=== PATIENT | female | born 1970 | race Caucasian/White ===

== ENCOUNTER 2017-04-27 03:36 | Emergency (ER) | payer OTHER ==
[2017-04-27 03:44] VITALS: BP 214/108; BMI 26.6
--- NOTE | 2017-04-27 03:49 | DR.GENAD ---
HPI - PCP Primary Care Physician: tima - Complaint/Symptoms Chief Complaint:: panic attack, virus, restless leg - Nurses notes reviewed Nurses Notes Review: Yes - Source History Provided: Patient - Mode of Arrival Mode of Arrival: Ambulatory - Timing Onset of Chief Complaint: 04/27/17 Came on: Suddenly - Duration Duration: Constant Duration: Hours - Severity Severity: Moderate PMH - PMH Past Medical History: No Past Medical History: Migraines Past Medical History Comment: adhd, Past Surgical History: Yes Surgical History: Ortho Surgery Past Surgical History Comment: right knee - Family History History of Family Medical Conditions: Yes Family Medical History: Hypertension - Social History Does any household member use tobacco: No Alcohol Use: None Do you use any recreational Drugs:: No Lives With: Family Lives Where: Home - infectious screening In the last 2 months have you had wt loss of >10#?: NO Have you had fever, night sweats or hemotysis?: No Have you traveled outside the country in the last 6 months?: No Isolation: Standard ROS - Review of Systems Constitutional: No Symptoms Reported Eyes: No Symptoms Reported ENTM: No Symptoms Reported Respiratoy: No Symptoms Reported Cardiovascular: No Symptoms Reported Gastrointestinal/Abdominal: No Symptoms Reported Genitourinary: No Symptoms Reported Neurological: No Symptoms Reported Musculoskeletal: No Symptoms Reported Integumentary: No Symptoms Reported Hematologic/Lymphatic: No Symptoms Reported Endocrine: No Symptoms Reported All Other Systems: Reviewed and Negative PE - Vital Signs Vitals: Temperature 97.9 F Pulse Rate 133 Respiratory Rate 16 Blood Pressure 214/108 O2 Sat by Pulse Oximetry 96 - General Limitations: No Limitations General Appearance: Alert - Head Head Exam: Normal Inspection - Eyes Eye exam: Normal Appearance - ENT ENT Exam: Normal External Ear Exam External Ear Exam: Normal External Inspection TM/Canal Exam: Bilateral Normal Nose Exam: Normal Nose Exam Mouth Exam: Normal Inspection Throat Exam: Normal Inspection - Neck Neck Exam: Normal Inspection - Chest Chest Inspection: Symmetric Chest Wall Rise - Respiratory Respiratory Exam: Normal Lung Sounds Bilat Respiratory Exam: Bilateral Clear to Auscultation - Cardiovascular Cardiovascular Exam: Regular Rate, Normal Rhythm, Normal Heart Sounds - Abdominal Exam Abdominal Exam: Normal Bowel Sounds, Soft. negative: Tenderness - Extremities Extremities Exam: Normal Inspection - Back Back Exam: Normal Inspection - Neurologic Neurological Exam: Alert, Oriented X3 - Psychiatric Psychiatric Exam: Normal Affect - Skin Skin Exam: Normal Color MDM - Additional Information Additional Information Obtained From: Family Findings: LOWER EXTREMITY PAIN, RESTLESS LEG SYNDROME, NEUROPATHY Course - Treatment Treatment: SEE ORDERS. - Education/Counseling Education/Counseling: Patient, Family, Education Educated On: Treatment, Diagnosis, Needs for Follow Up ROR - Labs Reviewed Laboratory Results Reviewed?: Yes Result Diagrams: 04/27/17 04:14 04/27/17 04:14 Laboratory: WBC 6.8 X10^3/uL (3.6-10.0) 04/27/17 04:14 RBC 4.55 X10^6/uL (3.5-5.4) 04/27/17 04:14 Hgb 14.6 g/dL (12.0-16.0) 04/27/17 04:14 Hct 41.8 % (36.0-47.0) 04/27/17 04:14 MCV 91.8 fL (80.0-100.0) 04/27/17 04:14 MCH 32.1 pg (27.0-34.0) 04/27/17 04:14 MCHC 35.0 g/dL (33.0-35.0) 04/27/17 04:14 RDW 11.9 % (11.6-16.5) 04/27/17 04:14 Plt Count 275 X10^3/uL (150.0-450.0) 04/27/17 04:14 MPV 7.9 fL (7.4-11.0) 04/27/17 04:14 Neut % 80.4 % (42.0-75.0) H 04/27/17 04:14 Lymph % 14.7 % (21.0-51.0) L 04/27/17 04:14 [place] % 4.1 % (0.0-13.0) 04/27/17 04:14 Eos % 0.2 % (0.9-2.9) L 04/27/17 04:14 Baso % 0.6 % (0.2-1.0) 04/27/17 04:14 Neut # 5.4 x10^3/uL (2.2-4.8) H 04/27/17 04:14 Lymph # 1.0 X10^3/uL (1.3-2.9) L 04/27/17 04:14 [place] # 0.3 x10^3/uL (0.3-0.8) 04/27/17 04:14 Eos # 0.0 x10^3/uL (0.0-0.2) 04/27/17 04:14 Baso # 0.0 X10^3/uL (0.0-0.1) 04/27/17 04:14 Absolute Nucleated RBC 0.0 /100WBC 04/27/17 04:14 D-Dimer < 100 ng/mL (0-400) 04/27/17 04:14 Sodium 142 mmol/L (136-145) 04/27/17 04:14 Corrected Sodium 143 mmol/L (136-145) 04/27/17 04:14 Potassium 3.8 mmol/L (3.5-5.1) 04/27/17 04:14 Chloride 107 mmol/L (98-107) 04/27/17 04:14 Carbon Dioxide 21.6 mmol/L (21-32) 04/27/17 04:14 BUN 20 mg/dL (7-18) H 04/27/17 04:14 Creatinine 1.08 mg/dL (0.55-1.02) H 04/27/17 04:14 Est GFR (MDRD) Af Amer > 60 (>60) 04/27/17 04:14 Est GFR (MDRD) Non-Af 58 (>60) L 04/27/17 04:14 Glucose 126 mg/dL (65-99) H 04/27/17 04:14 Calcium 8.6 mg/dL (8.5-10.1) 04/27/17 04:14 Corrected Calcium TNP 04/27/17 04:14 Total Bilirubin 0.30 mg/dL (0.2-1.0) 04/27/17 04:14 AST 15 Units/L (15-37) 04/27/17 04:14 ALT 26 Units/L (12-78) 04/27/17 04:14 Alkaline Phosphatase 104 Units/L (46-116) 04/27/17 04:14 Creatine Kinase 151 Units/L (26-192) 04/27/17 04:14 CK-MB (CK-2) 3.0 ng/mL (0-4.0) 04/27/17 04:14 CK/CKMB % Calc 2.0 % (<4) 04/27/17 04:14 Troponin I < 0.02 ng/mL (0-1.5) 04/27/17 04:14 Total Protein 7.2 g/dL (6.4-8.2) 04/27/17 04:14 Albumin 3.7 g/dL (3.4-5.0) 04/27/17 04:14 Globulin 3.5 g/dL (2.5-4.5) 04/27/17 04:14 Albumin/Globulin Ratio 1.1 Ratio (1.1-2.1) 04/27/17 04:14 TSH 3rd Generation 2.745 uIU/mL (0.358-3.74) 04/27/17 04:14 Specimen Type Clean catch urine 04/27/17 04:17 Urine Color Pale yellow (YELLOW) 04/27/17 04:17 Urine Appearance Clear (CLEAR) 04/27/17 04:17 Urine pH 6.0 (5.0 - 8.0) 04/27/17 04:17 Ur Specific [place] 1.005 (1.000-1.030) 04/27/17 04:17 Urine Protein Negative (NEGATIVE) 04/27/17 04:17 Urine Glucose (UA) Negative (NEGATIVE) 04/27/17 04:17 Urine Ketones Negative (NEGATIVE) 04/27/17 04:17 Urine Occult Blood 1+ (NEGATIVE) 04/27/17 04:17 Urine Nitrite Negative (NEGATIVE) 04/27/17 04:17 Urine Bilirubin Negative (NEGATIVE) 04/27/17 04:17 Urine Urobilinogen Normal (NORMAL) 04/27/17 04:17 Ur Leukocyte Esterase Negative (NEGATIVE) 04/27/17 04:17 Urine RBC 0-3 /HPF (NEGATIVE) 04/27/17 04:17 Urine WBC 0-3 /HPF (NEGATIVE) 04/27/17 04:17 Ur Squamous Epith Cells Rare /HPF (NEGATIVE) 04/27/17 04:17 Urine Bacteria Negative /HPF (NEGATIVE) 04/27/17 04:17 Ur Culture Indicated? No/not indicated 04/27/17 04:17 Urine Opiates Screen Negative (NEG=<300) 04/27/17 04:18 Urine Methadone Screen Negative (NEG=<300) 04/27/17 04:18 Ur Barbiturates Screen Negative (NEG=<200) 04/27/17 04:18 Ur Phencyclidine Scrn Negative (NEG=<25) 04/27/17 04:18 Ur Amphetamines Screen Negative (NEG=<1000) 04/27/17 04:18 U Benzodiazepines Scrn Negative (NEG=<200) 04/27/17 04:18 Urine Cocaine Screen Negative (NEG=<300) 04/27/17 04:18 U Marijuana (THC) Screen Negative (NEG=<50) 04/27/17 04:18 Influenza Type A (PCR) Negative (NEGATIVE) 04/27/17 04:20 Influenza Type B (PCR) Negative (NEGATIVE) 04/27/17 04:20 - Diagnosis Discharge Problem: Neuropathy, lower extremity Qualifiers: Laterality: right Qualified Code(s): G57.91 - Unspecified mononeuropathy of right lower limb Pain, lower extremity Qualifiers: Laterality: right Qualified Code(s): M79.604 - Pain in right leg - Discharge Plan Disposition: 01 HOME, SELF-CARE Condition: Stable Prescriptions: Ketorolac Tromethamine [Toradol Tab] 10 mg PO Q8H PRN #12 tab PRN Reason: Pain - Follow ups/Referrals Follow ups/Referrals: NFD,None [Primary Care Provider] - 1 day - Instructions Instructions: Neuropathic Pain, Musculoskeletal Pain Additional Instructions: RETURN TO ED IF WORSE.
[2017-04-27 04:22] LABS: BASOPHILS % (AUTO) 0.6 % (0.2-1.0); EOSINOPHILS % (AUTO) 0.2 % (0.9-2.9); HEMATOCRIT 41.8 % (36.0-47.0); HEMOGLOBIN 14.6 g/dL (12.0-16.0); LYMPHOCYTES % (AUTO) 14.7 % (21.0-51.0); MEAN CORPUSCULAR HEMOGLOBIN 32.1 pg (27.0-34.0); MEAN CORPUSCULAR VOLUME 91.8 fL (80.0-100.0); MEAN PLATELET VOLUME 7.9 fL (7.4-11.0); MONOCYTES # (AUTO) 0.3 x10^3/uL (0.3-0.8); MONOCYTES % (AUTO) 4.1 % (0.0-13.0); NEUTROPHILS # (AUTO) 5.4 x10^3/uL (2.2-4.8); NEUTROPHILS % (AUTO) 80.4 % (42.0-75.0); PLATELET COUNT 275 X10^3/uL (150.0-450.0); RED BLOOD COUNT 4.55 X10^6/uL (3.5-5.4); RED CELL DISTRIBUTION WIDTH 11.9 % (11.6-16.5); WHITE BLOOD COUNT 6.8 X10^3/uL (3.6-10.0)
[2017-04-27 04:31] LABS: BILIRUBIN,URINE NEGATIVE (NEGATIVE); BLOOD/HEMOGLOBIN,URINE 1+ (NEGATIVE); GLUCOSE, URINE NEGATIVE (NEGATIVE); KETONES,URINE NEGATIVE (NEGATIVE); LEUKOCYTE ESTERASE ,URINE NEGATIVE (NEGATIVE); NITRITES,URINE NEGATIVE (NEGATIVE); PROTEIN,URINE NEGATIVE (NEGATIVE); UROBILINOGEN,URINE NORMAL (NORMAL)
[2017-04-27 04:37] LABS: APPEARANCE,URINE CLEAR (CLEAR); BACTERIA,URINE NEGATIVE /HPF (NEGATIVE); COLOR,URINE PALE YELLOW (YELLOW); RBC,URINE 0-3 /HPF (NEGATIVE); SQUAMOUS EPITHELIAL CELL,UR RARE /HPF (NEGATIVE)
[2017-04-27 04:42] LABS: BLOOD UREA NITROGEN 20 mg/dL (7-18); CALCIUM 8.6 mg/dL (8.5-10.1); CARBON DIOXIDE 21.6 mmol/L (21-32); CHLORIDE 107 mmol/L (98-107); COR NA(FOR HYPERGLY) 143 mmol/L (136-145); CREATININE 1.08 mg/dL (0.55-1.02); SODIUM 142 mmol/L (136-145); TROPONIN I < 0.02 ng/mL (0-1.5); eGFR BLACK RACES > 60 (>60); eGFR NON BLACK RACES 58 (>60)
[2017-04-27 04:44] LABS: ALANINE AMINOTRANSFERASE 26 Units/L (12-78); ALBUMIN 3.7 g/dL (3.4-5.0); ALKALINE PHOSPHATASE 104 Units/L (46-116); ASPARTATE AMINO TRANSFERASE 15 Units/L (15-37); CREATINE KINASE 151 Units/L (26-192); TOTAL PROTEIN 7.2 g/dL (6.4-8.2)
[2017-04-27] MEDS ORDERED: ATIVAN INJ 2 MG VIAL IVP ONE (06:01)
[2017-04-27] MEDS ORDERED: ATIVAN INJ 2 MG VIAL ONE (06:03)
== END 2017-04-27 06:20 | disposition home or self-care (01) ==
LOC: ER 03:36
DX: G57.91 Unspecified mononeuropathy of right lower limb (principal); M79.604 Pain in right leg
CPT/HCPCS: 36415; 80053; 80307; 81001; 82550; 82553; 84443; 84484; 85025; 85378; 87502; 96372; 99283; G0434; J2060